=== PATIENT | male | born 1990 | race Caucasian/White ===

== ENCOUNTER 2017-01-26 11:57 | Emergency (ER) | payer SELFPAY ==
[~2017-01-26] VITALS: Ht 177.8 cm; Wt 78.5 kg
[2017-01-26 12:04] VITALS: BP 109/70
== END 2017-01-26 13:08 | disposition home or self-care (01) ==
LOC: ED 11:57
DX: T78.40XA Allergy, unspecified, initial encounter (principal); X58.XXXA Exposure to other specified factors, initial encounter
CPT/HCPCS: J1200; J2930

== ENCOUNTER 2017-02-23 21:20 | Emergency (ER) | payer SELFPAY ==
[2017-02-23 23:34] VITALS: BP 120/71
== END 2017-02-23 23:34 | disposition home or self-care (01) ==
LOC: ED 21:20
DX: L03.113 Cellulitis of right upper limb (principal); Z91.048 Other nonmedicinal substance allergy status; Z88.8 Allergy status to other drugs, medicaments and biological substances

== ENCOUNTER 2017-08-26 02:02 | Emergency (ER) | payer MEDICAID ==
[~2017-08-26] VITALS: Ht 177.8 cm; Wt 77.1 kg
[2017-08-26 02:24] VITALS: BP 132/90
== END 2017-08-26 04:38 | disposition left against medical advice (07) ==
LOC: ED 02:02
DX: S01.312A Laceration without foreign body of left ear, initial encounter (principal); Z53.21 Procedure and treatment not carried out due to patient leaving prior to being seen by health care provider

== ENCOUNTER 2017-09-11 03:55 | Emergency (ER) | payer MEDICAID ==
[2017-09-11 06:43] VITALS: BP 140/82
== END 2017-09-11 06:35 | disposition home or self-care (01) ==
LOC: ED 03:55
DX: G40.909 Epilepsy, unspecified, not intractable, without status epilepticus (principal); Z88.8 Allergy status to other drugs, medicaments and biological substances; Z88.9 Allergy status to unspecified drugs, medicaments and biological substances
CPT/HCPCS: J1200; J1953; J2060; J2405; J3490; J7030

== ENCOUNTER 2017-09-14 00:08 | Emergency (ER) | payer MEDICAID ==
[2017-09-14 00:15] VITALS: BP 128/81
== END 2017-09-14 02:01 | disposition left against medical advice (07) ==
LOC: ED 00:08
DX: Z53.21 Procedure and treatment not carried out due to patient leaving prior to being seen by health care provider (principal)

== ENCOUNTER 2017-09-18 06:39 | Emergency (ER) | payer MEDICAID ==
[~2017-09-18] VITALS: Ht 177.8 cm; Wt 70.8 kg
[2017-09-18 07:39] VITALS: BP 128/74
== END 2017-09-18 07:39 | disposition home or self-care (01) ==
LOC: ED 06:39
DX: R21 Rash and other nonspecific skin eruption (principal); R11.2 Nausea with vomiting, unspecified; T78.40XA Allergy, unspecified, initial encounter; X58.XXXA Exposure to other specified factors, initial encounter
CPT/HCPCS: Q0163

== ENCOUNTER 2018-01-09 14:56 | Emergency (ER) | payer OTHER ==
[~2018-01-09] VITALS: Ht 170.2 cm; Wt 78.0 kg
[2018-01-09 15:39] VITALS: Ht 170.2 cm; Wt 78.0 kg
[2018-01-09 18:10] VITALS: BP 116/67
== END 2018-01-09 18:14 | disposition home or self-care (01) ==
LOC: ED 14:56
DX: L29.8 Other pruritus (principal); Z88.6 Allergy status to analgesic agent; Z91.048 Other nonmedicinal substance allergy status
CPT/HCPCS: J2930; Q0163

== ENCOUNTER 2018-12-06 17:10 | Emergency (ER) | payer OTHER ==
[~2018-12-06] VITALS: Ht 180.3 cm; Wt 69.9 kg
[2018-12-06 17:19] VITALS: Ht 180.3 cm; Wt 69.9 kg
[2018-12-06 18:55] LABS: BASOPHIL % 0.6 % (0-2)
[2018-12-06 18:57] LABS: PLATELET COUNT 431 x10^3mcL (130-400); RED CELL DISTRIBUTION WIDTH 17.3 % (11.5-14.5)
[2018-12-06 19:07] LABS: CALCIUM 9.3 mg/dL (8.5-10.1); CARBON DIOXIDE 24.5 mmol/L (21-32); CHLORIDE SERUM 105 mmol/L (98-107); CREATININE SERUM 0.8 mg/dL (0.7-1.3); GFR1 > 60 mL/min; GLUCOSE SERUM 108 mg/dL (74-106); POTASSIUM SERUM 3.8 mmol/L (3.5-5.1); SODIUM SERUM 142 mmol/L (136-145)
[2018-12-06 19:12] LABS: ALBUMIN 4.2 g/dL (3.4-5.0); ALKALINE PHOSPHATASE 74 U/L (46-116); ALT/SGPT 39 U/L (16-63); AST/SGOT 42 U/L (15-37); BILIRUBIN TOTAL 0.51 mg/dL (0.20-1.00); LIPASE 200 IU/L (73-393); TOTAL PROTEIN, SERUM 8.8 g/dL (6.4-8.2)
[2018-12-06 19:42] LABS: UA SPECIFIC GRAVITY >=1.030 (1.005-1.035); microscopic required? YES; urine erythrocyte NEGATIVE (NEGATIVE)
[2018-12-06 19:48] LABS: AMPHETAMINE QUAL UR POSITIVE (See below)
[2018-12-06 22:04] VITALS: BP 106/71
== END 2018-12-06 22:04 | disposition home or self-care (01) ==
LOC: ED 17:10
PROVIDERS: Emergency Medicine
DX: R11.10 Vomiting, unspecified (principal); R56.9 Unspecified convulsions; R10.9 Unspecified abdominal pain; F41.9 Anxiety disorder, unspecified; R53.1 Weakness; R68.83 Chills (without fever); R51 Headache; Z88.8 Allergy status to other drugs, medicaments and biological substances
CPT/HCPCS: 87804; J1953; J2405; J2765; J7030

== ENCOUNTER 2018-12-25 23:43 | Emergency (ER) | payer OTHER ==
[~2018-12-25] VITALS: Ht 180.3 cm; Wt 73.0 kg
[2018-12-26 00:27] VITALS: Ht 180.3 cm; Wt 73.0 kg
[2018-12-26 03:05] VITALS: BP 127/76
== END 2018-12-26 03:05 | disposition home or self-care (01) ==
LOC: ED 23:43
DX: T78.49XA Other allergy, initial encounter (principal); F41.9 Anxiety disorder, unspecified; M19.90 Unspecified osteoarthritis, unspecified site; Z98.890 Other specified postprocedural states
CPT/HCPCS: J1100; J1200